=== PATIENT | female | born 1990 | race Caucasian/White ===

== ENCOUNTER 2016-08-14 07:47 | Emergency (ER) | payer SELFPAY ==
[~2016-08-14] VITALS: Ht 170.2 cm; Wt 69.0 kg
[2016-08-14 07:50] VITALS: BP 120/80; PULSE 98; RESP 16; TEMP 97.8; O2SAT 98
[2016-08-14 08:03] VITALS: BP 121/79; PULSE 83; RESP 18; TEMP 98; O2SAT 97
[2016-08-14] MEDS ORDERED: SODIUM CHLOR 0.9% 1000 ML INJ 1,000 ML IV SCH (08:08)
[2016-08-14 08:14] VITALS: RESP 18; O2SAT 98
[2016-08-14] MEDS ORDERED: SODIUM CHLORIDE 0.9% FLUSH 10 ML FLUSH IV FLUSH PRN (08:15)
[2016-08-14] MEDS ORDERED: ONDANSETRON HCL 4 MG/2 ML VIAL IVP ONE (08:15)
[2016-08-14 08:45] LABS: AUTOMATED NEUTROPHIL # 6.1 TH/MM3 (1.8-7.7); BASOPHIL # 0.1 TH/MM3 (0-0.2); BASOPHIL % 0.6 % (0.0-2.0); EOSINOPHIL % 0.4 % (0.0-4.0); HEMATOCRIT 43.9 % (35.0-46.0); HEMO FLAGS DIFF FINAL; LYMPH % 22.2 % (9.0-44.0); MEAN CELL VOLUME 92.4 FL (80.0-100.0); MEAN CORPUSCULAR HEMOGLOBIN 32.5 PG (27.0-34.0); MEAN CORPUSCULAR HGB CONC 35.2 % (32.0-36.0); MONO % 7.9 % (0.0-8.0); NEUT % 68.9 % (16.0-70.0); PLATELET COUNT 249 TH/MM3 (150-450); RED BLOOD COUNT 4.75 MIL/MM3 (4.00-5.30); RED CELL DISTRIBUTION WIDTH 13.1 % (11.6-17.2); WHITE BLOOD COUNT 8.8 TH/MM3 (4.0-11.0)
--- NOTE | 2016-08-14 08:46 | PD ---
HPI Chief Complaint: Abdominal Pain Time Seen by Provider: 08:36 Travel History International Travel<30 days: No Contact w/Intl Traveler<30days: No Traveled to known affect area: No History of Present Illness HPI 26-year-old female patient presents to the ER today for a few days history of nausea, vomiting, diarrhea, and generalized abdominal pains which she currently rates at a 6/10. She does not know any sick contacts. She denies any fevers, chest pains, shortness of breath, cold symptoms, or any other issues. She has had 2 episodes of vomiting and diarrhea this morning. Modifying Factors: None Associated Signs & Symptoms: Nausea, vomiting, diarrhea, generalized abdominal pain Risk Factors: None PFSH Past Medical History Anxiety: Yes Diabetes: No Medical other: Yes (POLYCYSTIC OVARY) Tetanus Vaccination: > 5 Years Influenza Vaccination: No ?: Unknown LMP: 07/25/16 Past Surgical History Gynecologic Surgery: Yes (CYCST REMOVAL R OVARY) Social History Alcohol Use: No Tobacco Use: Yes (1/2PPD) Substance Use: Yes (MARIJUANA) Allergies-Medications (Allergen,Severity, Reaction): Coded Allergies: No Known Allergies (Unverified , 08/14/16) Reported Meds & Prescriptions Reported Meds & Active Scripts Active No Active Prescriptions or Reported Medications Review of Systems Except as stated in HPI: all other systems reviewed are Neg Physical Exam Narrative GENERAL: Well-developed young white female patient currently not in acute distress. SKIN: Focused skin assessment warm/dry. HEAD: Atraumatic. Normocephalic. EYES: Pupils equal and round. No scleral icterus. No injection or drainage. ENT: No nasal bleeding or discharge. Mucous membranes pink and moist. NECK: Trachea midline. No JVD. CARDIOVASCULAR: Regular rate and rhythm. No murmur appreciated. RESPIRATORY: No accessory muscle use. Clear to auscultation. Breath sounds equal bilaterally. GASTROINTESTINAL: Abdomen soft, mild diffuse abdominal tenderness without guarding or rebound, nondistended. Hepatic and splenic margins not palpable. GENITOURINARY: Normal external genitalia without lesions or erythema. Vaginal vault without blood or drainage. Cervical os was closed without drainage. No cervical motion tenderness. Uterus nontender and nonenlarged. Right adnexa mildly tender to palpation without and without masses. MUSCULOSKELETAL: No obvious deformities. No clubbing. No cyanosis. No edema. NEUROLOGICAL: Awake and alert. No obvious cranial nerve deficits. Motor grossly within normal limits. Normal speech. PSYCHIATRIC: Appropriate mood and affect; insight and judgment normal. Data Data Last Documented VS Vital Signs Date Time Temp Pulse Resp B/P Pulse Ox O2 Delivery O2 Flow Rate FiO2 08/14/16 10:18 80 18 129/74 100 Room Air 08/14/16 08:03 98.0 Orders Complete Blood Count With Diff (08/14/16 08:08) Comprehensive Metabolic Panel (08/14/16 08:08) Lipase (08/14/16 08:08) Urinalysis - C+S If Indicated (08/14/16 08:08) Iv Access Insert/Monitor (08/14/16 08:08) Ecg Monitoring (08/14/16 08:08) Oximetry (08/14/16 08:08) Ondansetron Inj (Zofran Inj) (08/14/16 08:15) Sodium Chlor 0.9% 1000 Ml Inj (Ns 1000 M (08/14/16 08:08) Sodium Chloride 0.9% Flush (Ns Flush) (08/14/16 08:15) Ed Urine Pregnancytest Poc (08/14/16 08:08) Influenzae A/B Antigen (08/14/16 08:43) Gc And Chlamydia Pcr (08/14/16 09:40) Wet Prep Profile (08/14/16 09:40) Us Pelvis Comp W Dop Transvag (08/14/16 ) Labs Laboratory Tests Test 08/14/16 08/14/16 08:20 10:15 White Blood Count 8.8 TH/MM3 Red Blood Count 4.75 MIL/MM3 Hemoglobin 15.4 GM/DL Hematocrit 43.9 % Mean Corpuscular Volume 92.4 FL Mean Corpuscular Hemoglobin 32.5 PG Mean Corpuscular Hemoglobin 35.2 % Concent Red Cell Distribution Width 13.1 % Platelet Count 249 TH/MM3 Mean Platelet Volume 9.8 FL Neutrophils (%) (Auto) 68.9 % Lymphocytes (%) (Auto) 22.2 % Monocytes (%) (Auto) 7.9 % Eosinophils (%) (Auto) 0.4 % Basophils (%) (Auto) 0.6 % Neutrophils # (Auto) 6.1 TH/MM3 Lymphocytes # (Auto) 2.0 TH/MM3 Monocytes # (Auto) 0.7 TH/MM3 Eosinophils # (Auto) 0.0 TH/MM3 Basophils # (Auto) 0.1 TH/MM3 CBC Comment DIFF FINAL Differential Comment Urine Color YELLOW Urine Turbidity HAZY Urine pH 6.0 Urine Specific Lena 1.019 Urine Protein TRACE mg/dL Urine Glucose (UA) NEG mg/dL Urine Ketones NEG mg/dL Urine Occult Blood NEG Urine Nitrite NEG Urine Bilirubin NEG Urine Urobilinogen LESS THAN 2.0 MG/DL Urine Leukocyte Esterase NEG Urine RBC 4 /hpf Urine WBC 4 /hpf Urine Squamous Epithelial 18 /hpf Cells Urine Mucus MOD /lpf Microscopic Urinalysis Comment CULT NOT INDICATED Sodium Level 138 MEQ/L Potassium Level 3.8 MEQ/L Chloride Level 103 MEQ/L Carbon Dioxide Level 26.0 MEQ/L Anion Gap 9 MEQ/L Blood Urea Nitrogen 8 MG/DL Creatinine 0.90 MG/DL Estimat Glomerular Filtration 77 ML/MIN Rate Random Glucose 103 MG/DL Calcium Level 9.3 MG/DL Total Bilirubin 0.6 MG/DL Aspartate Amino Transf 12 U/L (AST/SGOT) Alanine Aminotransferase 18 U/L (ALT/SGPT) Alkaline Phosphatase 67 U/L Total Protein 7.7 GM/DL Albumin 4.2 GM/DL Lipase 126 U/L Clue Cells (Wet Prep) NONE SEEN Vaginal Trichomonas (Wet Prep) NONE SEEN Vaginal Yeast (Wet Prep) NONE SEEN MDM Medical Decision Making Medical Screen Exam Complete: Yes Emergency Medical Condition: Yes Medical Record Reviewed: Yes Interpretation(s) Last 24 hours Impressions Abdomen/Pelvis/Transvag US 08/14/16 0000 Signed Impressions: Service Date/Time: July 10:19 - CONCLUSION: 1. No evidence of pelvic mass or torsion. Michael Roca MD Laboratory Tests Test 08/14/16 08:20 Hemoglobin 15.4 GM/DL (11.6-15.3) Urine Turbidity HAZY (CLEAR) Urine RBC 4 /hpf (0-3) Urine Mucus MOD /lpf (OCC) Estimat Glomerular Filtration 77 ML/MIN (>89) Rate Aspartate Amino Transf 12 U/L (15-37) (AST/SGOT) Differential Diagnosis Nausea, vomiting, diarrhea, generalized abdominal painsgastroenteritis versus dehydration versus electrolyte abnormalities versus diverticulitis versus influenza Narrative Course Patient's significant other returns, and states to me that she has had significant dyspareunia areas well. However, patient denies any vaginal discharge. HCG test was done and she is not . She has been told the past that she has PCOS and has had history of ovarian torsion. And they are fairly concerned that this is an ovarian torsion. In addition, they are insistent that she needs a pelvic ultrasound. I have talked to the patient regarding symptoms and I did not feel that the symptoms with nausea vomiting and diarrhea are likely to be related to ovarian torsion. However, at this point, ultrasound has been put in to rule out ovarian torsion as well. Symptoms have already been going on for several days. And at this point urine has been going on for about a month according to the patient's significant other. Transvaginal ultrasound and pelvic did not reveal any signs of acute processes. At this point, my plan would be to release the patient would follow-up to primary care physician. Return for new issues as needed. The plan has been discussed with her and she states understanding. Diagnosis Primary Impression: Abdominal pain Additional Impression: Gastroenteritis Med/Other Pt SpecificInfo: Prescription(s) given Scripts Ibuprofen (Motrin Ib)200 Mg [id number] Mg PO Q6H PRN (PAIN SCALE 1 TO 10) #20 TAB Ref 0 Prov:Dayo Gusman MD 08/14/16 Ondansetron Odt (Zofran Odt)4 Mg Tab4 Mg SL Q6HR PRN (Nausea/Vomiting) #7 TAB Ref 0 Prov:Dayo Gusman MD 08/14/16 Disposition: 01 DISCHARGE HOME Condition: Stable Dayo Gusman MD Aug 14, 2016 08:46
[2016-08-14 09:06] LABS: ANION GAP 9 MEQ/L (5-15); AST (GOT) 12 U/L (15-37); BLOOD UREA NITROGEN 8 MG/DL (7-18); CHLORIDE 103 MEQ/L (98-107); GLOMERULAR FILTRATION RATE 77 ML/MIN (>89); POTASSIUM 3.8 MEQ/L (3.5-5.1); SODIUM (NA) 138 MEQ/L (136-145)
[2016-08-14 09:09] LABS: ALKALINE PHOSPHATASE 67 U/L (45-117); ALT (GPT) 18 U/L (10-53); BLOOD, URINE NEG (NEG); COMMENT (UR) CULT NOT INDICATED; CULTURE IF INDICATED CULT NOT INDICATED; GLUCOSE,URINE NEG (NEG); KETONE, URINE NEG (NEG); MUCUS URINE MOD /lpf (OCC); NITRITE,URINE NEG (NEG); SQUAMOUS EPITHELIAL CELL URINE 18 /hpf (0-5); TOTAL BILIRUBIN ADULT 0.6 MG/DL (0.2-1.0); URINE COLOR YELLOW (YELLW/STRAW)
[2016-08-14 10:18] VITALS: BP 129/74; PULSE 80; RESP 18; O2SAT 100
--- NOTE | 2016-08-14 11:15 | RADRPT ---
EXAM DATE/TIME: 08/14/2016 10:19 [facility] COMPARISON: No previous studies available for comparison. INDICATIONS : Right pelvic pain. MEDICAL HISTORY : Sciatiica. Polycystic ovaries. Ovarian cysts. PTSD. SURGICAL HISTORY : Left ovarian cyst removed. ENCOUNTER: Initial ACUITY: 3 weeks PAIN SCORE: 5/10 LOCATION: Bilateral pelvis MEASUREMENTS: UTERUS: 7.4 x 4.6 x 3.1 cm ENDOMETRIAL STRIPE: 8 mm RIGHT OVARY: 4.5 x 3.0 x 3.6 cm LEFT OVARY: 2.9 x 1.6 x 2.0 cm FINDINGS: The uterus is normal in size, and shape for the patient's age. No focal masses are identified. The en dometrial stripe is normal. The left ovary appears normal. No adnexal masses are identified. No free fluid is identified. A small fluid or cyst is present in the right ovary. Normal Doppler flow is pres ent bilaterally. CONCLUSION: 1. No evidence of pelvic mass or torsion. Michael Roca MD on August 14, 2016 at 11:11 Board Certified Radiologist. This report was verified electronically.
[2016-08-14] MEDS ORDERED: MOTR200T4 PO (11:22)
[2016-08-14] MEDS ORDERED: ZOFR4TAB3 SL (11:22)
[2016-08-14 13:08] LABS: CHLAMYDIA PCR NOT DETECTED (NOT DETECT); NEISSERIA PCR NOT DETECTED (NOT DETECT)
== END 2016-08-14 12:11 | disposition home or self-care (01) ==
LOC: NEPC 07:47
DX: K52.9 Noninfective gastroenteritis and colitis, unspecified (principal); E28.2 Polycystic ovarian syndrome; F17.210 Nicotine dependence, cigarettes, uncomplicated; F12.10 Cannabis abuse, uncomplicated
CPT/HCPCS: 76830; 76856; 80053; 81001; 83690; 84703; 85025; 87210; 87491; 87591; 87804; 93975; 96361; 96374; 99284; J2405; J7030